=== PATIENT | female | born 1985 | race Caucasian/White ===

== ENCOUNTER → 2017-01-07 | Outpatient (CLI) | payer OTHER ==
[~2017-01-07] MED LIST: ISOVUE-370 76% 100ML VIAL (Q9967) As Ordered ONE
--- NOTE | 2017-01-07 19:28 | REP ---
CT CHEST WITH CONTRAST: 01/07/2017: Clinical history: Abnormal pulmonary function test. Follow-up pulmonary nodules. Comparison: Chest x-ray 04/14/2012, CT chest 05/08/2015, 06/28/2013, 05/10/2012. Findings: The patient received a bolus of 75 mL [id number] with scanning through the chest with both coronal and sagittal reformats. Bone windows are also reviewed as were lung windows and coronal plane of reconstruction. There are dependent atelectatic changes posteriorly in the mid and lower lung zones, left, perhaps slightly greater than right. Some ill-defined nodular opacities adjacent to the major fissure anteriorly on the right and best seen on images 59 and 60 again noted. Small nodule along the major fissure peripherally on image 73 on the right in the right lower lobe side of the pleura and I see no pleural effusion, calcified pleural plaques or pleural-based mass. Left lung shows no definite nodule. There is small nodule on image 61 on the posterior margin of the major fissure in the right lower lobe, that finding too is unchanged. The heart is not enlarged. There is no pericardial thickening or effusion. No pathologic sized mediastinal or hilar adenopathy. Thymic remnant in the superior mediastinum without a mass. There is no definite hiatal hernia. I see no bronchiectasis, pneumothorax or pneumomediastinum. No pericardial thickening or effusion. No chamber enlargement in the heart. No axillary or supraclavicular mass. The bone windows show the sternum, manubrium, clavicles, AC joints, glenohumeral joints, humeral heads, scapulae, ribs and spine all unremarkable. In the upper abdomen there is no enlargement or nodule/mass in the spleen. The liver portion included is unremarkable and only a portion of the pancreas and gallbladder included but were intact. Upper poles of the kidneys were unremarkable. There is an extrarenal pelvis on both sides and adrenal glands normal. Visualized bowel loops intact. Impression: 1. Right lung nodules unchanged dating back to 2011 and along the major fissure with no effusion, calcified pleural plaque, infiltrate, pneumothorax, mediastinal or hilar adenopathy or other acute finding. Signed by Sammy Hma MD 01/07/2017 08:19 P
== END ==
LOC: M RAD 16:11
PROVIDERS: ATTEND Family Medicine
DX: R94.2 Abnormal results of pulmonary function studies (principal); R91.8 Other nonspecific abnormal finding of lung field
CPT/HCPCS: 71260; Q9967

== ENCOUNTER → 2018-02-08 | Outpatient (REF) | payer OTHER | LOC: M SFHCWAGY 15:37 | DX: Z12.4 Encounter for screening for malignant neoplasm of cervix (principal) ==

== ENCOUNTER → 2020-03-07 | Outpatient (REF) | LOC: M LAB 10:38 ==